=== PATIENT | female | born 1955 | race Caucasian/White ===

== ENCOUNTER 2018-03-26 15:06 | Emergency (ER) | payer MEDICAID ==
[~2018-03-26] VITALS: Ht 157.5 cm; Wt 74.0 kg
[2018-03-26] VITALS (7 sets, daily range): BP systolic 95–138; BP diastolic 50–84
[~2018-03-26 15:06] MED LIST: BUPR150T8 PO; CIPR-173 PO; DOCU-28 PO; EST1T PO; HYDR200T84 PO; NAS0.025NS NS; OSC500T PO; OXYC10TA47 PO; PROP10DR4 EACHEYE; PROP10DR5 EACHEYE; SYN0.088T PO; TOP100T PO
[2018-03-26] MEDS ORDERED: nitroGLYCERIN 0.4mg/hour patch TD ONE (15:40)
[2018-03-26] MEDS ORDERED: glucagon, human recombinant 1mg kit IV ONE (15:40)
[2018-03-26] MEDS ORDERED: nitroGLYCERIN 0.4mg SUBLingual tab SL PRN (15:55)
[2018-03-26] MEDS ORDERED: fentaNYL/PF 50MCG/1 ML 2ML syringe ONE (16:05)
[2018-03-26] MEDS ORDERED: MIDAZolam 5mg/5ml vial ONE (16:05)
[2018-03-26] MEDS ORDERED: LIDOcaine Viscous 15ml cup ONE (16:05)
== END 2018-03-26 17:48 | disposition home or self-care (01) ==
LOC: ER 15:07
DX: T17.228A Food in pharynx causing other injury, initial encounter (principal); K22.2 Esophageal obstruction; K21.9 Gastro-esophageal reflux disease without esophagitis; Z90.49 Acquired absence of other specified parts of digestive tract; Z98.890 Other specified postprocedural states; Z88.2 Allergy status to sulfonamides; Z88.5 Allergy status to narcotic agent; Z91.012 Allergy to eggs; Z88.8 Allergy status to other drugs, medicaments and biological substances; Z79.2 Long term (current) use of antibiotics; Z79.899 Other long term (current) drug therapy; Y92.89 Other specified places as the place of occurrence of the external cause
CPT/HCPCS: 43247; 43450; 96374; 99152; 99285; J1610; J2250; J3010; 99284; A4620

== ENCOUNTER 2019-05-11 13:54 | Emergency (ER) | payer MEDICAID ==
[~2019-05-11] VITALS: Ht 157.5 cm; Wt 72.7 kg
--- NOTE | 2019-05-11 14:31 | NUR ---
ekg and chest xray done
[2019-05-11 14:43] LABS: BASOPHILS # (AUTO) 0.1 X10'3 (0-0.2); BASOPHILS % (AUTO) 1.2 % (0-1); EOSINOPHILS # (AUTO) 0.2 X10'3 (0-0.9); EOSINOPHILS % (AUTO) 2.2 % (0-6); HEMATOCRIT 38.5 % (35.0-45.0); HEMOGLOBIN 13.3 g/dl (12.0-16.0); LYMPHOCYTES # (AUTO) 2.7 X10'3 (1.1-4.8); LYMPHOCYTES % (AUTO) 35.9 % (21-51); MEAN CORPUSCULAR HEMOGLOBIN 33.5 PG (27.0-31.0); MEAN CORPUSCULAR HGB CONC 34.5 g/dL (33.0-36.5); MEAN CORPUSCULAR VOLUME 97.1 FL (78-98); MEAN PLATELET VOLUME 8.9 FL (7.4-10.4); MONOCYTES # (AUTO) 0.8 X10'3 (0-0.9); MONOCYTES % (AUTO) 10.7 % (2-12); NEUTROPHILS # (AUTO) 3.8 X10'3 (1.8-7.7); PLATELET COUNT 276 X10'3 (140-440); RED BLOOD COUNT 3.96 X10'6 (4.20-5.60); RED CELL DISTRIBUTION WIDTH 12.7 % (11.5-14.5); WHITE BLOOD COUNT 7.6 X10'3 (4.5-11.0)
[2019-05-11 14:59] LABS: ALANINE AMINOTRANSFERASE 24 U/L (12-78); ALBUMIN/GLOBULIN RATIO 1.1 (1.1-1.5); ALKALINE PHOSPHATASE 49 IU/L (46-116); ANION GAP 5 (8-16); ASPARTATE AMINO TRANSFERASE 24 U/L (10-37); BILIRUBIN,TOTAL 0.3 MG/DL (0.1-1.0); BLOOD UREA NITROGEN 24 MG/DL (7-18); BUN/CREATININE RATIO 23.3 (6.6-38.0); CHLORIDE 108 MMOL/L (99-107); CREATININE 1.03 MG/DL (0.40-0.90); GLUCOSE 88 MG/DL (70-104); POTASSIUM 3.2 MMOL/L (3.5-5.1); SODIUM 142 MMOL/L (135-145); TOTAL CARBON DIOXIDE 29.5 MMOL/L (24-32); TOTAL PROTEIN 7.5 G/DL (6.4-8.2); eGFR 54 ML/MIN
[2019-05-11 15:35] LABS: LARGE PLATELETS FEW; PLATELET ESTIMATE NORMAL
[2019-05-11 16:16] VITALS: BP 129/85
[2019-05-11 16:21] LABS: D-DIMER 0.42 MG/L FEU (0-0.50)
[2019-05-11] MEDS ORDERED: potassium Cl 20 mEq SR tablet PO ONE (16:25)
[2019-05-11] MEDS ORDERED: CYCL-1 PO (16:37)
== END 2019-05-11 16:58 | disposition home or self-care (01) ==
LOC: ER 13:55
DX: R07.89 Other chest pain (principal); M54.6 Pain in thoracic spine; R22.43 Localized swelling, mass and lump, lower limb, bilateral; K21.9 Gastro-esophageal reflux disease without esophagitis; F41.9 Anxiety disorder, unspecified; Z90.49 Acquired absence of other specified parts of digestive tract; Z98.890 Other specified postprocedural states; Z91.012 Allergy to eggs; Z88.2 Allergy status to sulfonamides; Z88.5 Allergy status to narcotic agent; Z88.6 Allergy status to analgesic agent; Z88.8 Allergy status to other drugs, medicaments and biological substances; Z79.899 Other long term (current) drug therapy
CPT/HCPCS: 36415; 71045; 80053; 84484; 85025; 85379; 93005; 99284

== ENCOUNTER 2019-11-08 14:53 | Emergency (ER) | payer MEDICARE, MEDICAID ==
[~2019-11-08] VITALS: Ht 157.5 cm; Wt 72.7 kg
[~2019-11-08 14:53] MED LIST changes: +CYCL-1 PO
[2019-11-08 15:35] LABS: BASOPHILS # (AUTO) 0.2 X10'3 (0-0.2); BASOPHILS % (AUTO) 3.5 % (0-1); EOSINOPHILS # (AUTO) 0.2 X10'3 (0-0.9); EOSINOPHILS % (AUTO) 2.9 % (0-6); HEMATOCRIT 39.4 % (35.0-45.0); HEMOGLOBIN 13.6 g/dl (12.0-16.0); LYMPHOCYTES # (AUTO) 3.3 X10'3 (1.1-4.8); LYMPHOCYTES % (AUTO) 46.6 % (21-51); MEAN CORPUSCULAR HEMOGLOBIN 33.8 PG (27.0-31.0); MEAN CORPUSCULAR HGB CONC 34.6 g/dL (33.0-36.5); MEAN CORPUSCULAR VOLUME 97.7 FL (78-98); MEAN PLATELET VOLUME 9.3 FL (7.4-10.4); MONOCYTES # (AUTO) 0.9 X10'3 (0-0.9); MONOCYTES % (AUTO) 13.2 % (2-12); NEUTROPHILS # (AUTO) 2.4 X10'3 (1.8-7.7); NEUTROPHILS % (AUTO) 33.8 % (42-75); PLATELET COUNT 323 X10'3 (140-440); RED BLOOD COUNT 4.03 X10'6 (4.20-5.60); RED CELL DISTRIBUTION WIDTH 12.5 % (11.5-14.5); WHITE BLOOD COUNT 7.1 X10'3 (4.5-11.0)
[2019-11-08 15:48] LABS: PARTIAL THROMBOPLASTIN TIME 35 SECONDS (22-32)
[2019-11-08 15:49] LABS: ALANINE AMINOTRANSFERASE 21 U/L (12-78); ALBUMIN/GLOBULIN RATIO 1.1 (1.1-1.5); ALKALINE PHOSPHATASE 44 IU/L (46-116); ANION GAP 5 (8-16); ASPARTATE AMINO TRANSFERASE 22 U/L (10-37); BILIRUBIN,TOTAL 0.3 MG/DL (0.1-1.0); BLOOD UREA NITROGEN 20 MG/DL (7-18); CALCIUM 9.1 MG/DL (8.5-10.1); CHLORIDE 106 MMOL/L (99-107); CREATININE 1.11 MG/DL (0.40-0.90); GLUCOSE 105 MG/DL (70-104); POTASSIUM 3.4 MMOL/L (3.5-5.1); SODIUM 142 MMOL/L (135-145); TOTAL CARBON DIOXIDE 31.4 MMOL/L (24-32); TOTAL PROTEIN 7.8 G/DL (6.4-8.2); eGFR 49 ML/MIN
[2019-11-08] MEDS ORDERED: famotidine/PF 10 mg/ml inj IV ONE (15:50)
[2019-11-08] MEDS ORDERED: pantoprazole 40 MG vial IV ONE (15:50)
[2019-11-08] MEDS ORDERED: ondansetron/PF 4mg/2ml inj IV ONE (16:05)
[2019-11-08] MEDS ORDERED: LIDOcaine Viscous 15ml cup MM ONE (16:05)
[2019-11-08] MEDS ORDERED: mag hydrox/Alum hydrox/simeth 30ml oral suspension PO ONE (16:05)
--- NOTE | 2019-11-08 16:27 | NUR ---
pt amb with steady gait to restroom, no assistance needed
[2019-11-08 16:38] LABS: PLATELET ESTIMATE NORMAL
[2019-11-08 16:39] LABS: SCHISTOCYTES FEW
[2019-11-08] MEDS ORDERED: PANT-47 PO (17:17)
[2019-11-08 17:35] VITALS: BP 127/65
[2019-11-08 17:48] LABS: CLARITY,URINE CLEAR (Clear); COLOR,URINE STRAW (Yellow); GLUCOSE, URINE NEGATIVE (Neg); KETONES,URINE NEGATIVE (Neg); LEUKOCYTE ESTERASE ,URINE NEGATIVE (Neg); NITRITES, URINE NEGATIVE (Neg); OCCULT BLOOD,URINE NEGATIVE (Neg); PH,URINE 6.5 (4.8-8.0); PROTEIN,URINE NEGATIVE (Neg); UROBILINOGEN,URINE 0.2 E.U/dL (0.2-1.0)
[2019-11-08 17:50] LABS: UA COLLECTION TYPE CLN CATCH MIDSTREAM
[2019-11-08 18:42] LABS: OCCULT BLOOD STOOL NEGATIVE (Neg)
== END 2019-11-08 17:38 | disposition home or self-care (01) ==
LOC: ER 14:53
DX: K92.1 Melena (principal); M54.5 Low back pain; R53.1 Weakness; R11.0 Nausea; K21.9 Gastro-esophageal reflux disease without esophagitis; F41.9 Anxiety disorder, unspecified; Z90.49 Acquired absence of other specified parts of digestive tract; Z88.5 Allergy status to narcotic agent; Z88.2 Allergy status to sulfonamides; Z88.8 Allergy status to other drugs, medicaments and biological substances; Z88.6 Allergy status to analgesic agent; Z91.012 Allergy to eggs; Z79.2 Long term (current) use of antibiotics; Z79.899 Other long term (current) drug therapy
CPT/HCPCS: 36415; 71045; 80053; 81003; 82272; 85025; 85610; 85730; 86885; 86900; 86901; 93005; 96374; 96375; 99285; C9113; J2405; J3490

== ENCOUNTER 2020-12-09 12:03 | Emergency (ER) | payer MEDICARE, MEDICAID ==
[~2020-12-09] VITALS: Ht 157.5 cm; Wt 82.0 kg
[~2020-12-09 12:03] MED LIST changes: +PANT-47 PO
[2020-12-09 12:56] VITALS: BP 125/80
== END 2020-12-09 14:17 | disposition home or self-care (01) ==
LOC: ER 12:05
DX: U07.1 COVID-19 (principal); K21.9 Gastro-esophageal reflux disease without esophagitis; Z90.49 Acquired absence of other specified parts of digestive tract; Z88.2 Allergy status to sulfonamides; Z91.018 Allergy to other foods; Z88.5 Allergy status to narcotic agent; Z88.8 Allergy status to other drugs, medicaments and biological substances; Z79.899 Other long term (current) drug therapy
CPT/HCPCS: 87635; 99283; C9803

== ENCOUNTER 2021-03-19 13:07 | Emergency (ER) | payer MEDICARE, MEDICAID ==
[~2021-03-19] VITALS: Ht 157.5 cm; Wt 82.3 kg
[~2021-03-19 13:07] MED LIST changes: -CIPR-173 PO; +CIPR-447 PO
[2021-03-19 13:39] VITALS: BP 153/85
[2021-03-19] MEDS ORDERED: ORPH100T2 PO (14:00)
[2021-03-19] MEDS ORDERED: TRAM50TA2 PO (14:00)
[2021-03-19] MEDS ORDERED: ketorolac trometh inj. 60 MG/2 ML VIAL IM ONE (14:00)
[2021-03-19] MEDS ORDERED: orphenadrine citrate 60mg/2ml inj. IM ONE (14:00)
== END 2021-03-19 14:15 | disposition home or self-care (01) ==
LOC: ER 13:07
DX: S39.012A Strain of muscle, fascia and tendon of lower back, initial encounter (principal); M62.830 Muscle spasm of back; K21.9 Gastro-esophageal reflux disease without esophagitis; F41.9 Anxiety disorder, unspecified; Z90.49 Acquired absence of other specified parts of digestive tract; Z98.890 Other specified postprocedural states; Z91.012 Allergy to eggs; Z88.2 Allergy status to sulfonamides; Z88.8 Allergy status to other drugs, medicaments and biological substances; Z88.5 Allergy status to narcotic agent; Z79.2 Long term (current) use of antibiotics; Z79.899 Other long term (current) drug therapy; X58.XXXA Exposure to other specified factors, initial encounter; Y93.89 Activity, other specified; Y92.89 Other specified places as the place of occurrence of the external cause; Y99.8 Other external cause status
CPT/HCPCS: 96372; 99284; J1885; J2360

== ENCOUNTER 2021-06-25 15:36 | Emergency (ER) | payer MEDICARE, MEDICAID ==
[~2021-06-25] VITALS: Ht 157.5 cm; Wt 83.0 kg
[~2021-06-25 15:36] MED LIST changes: +ORPH100T2 PO
[2021-06-25] MEDS ORDERED: IBUP-1986 PO (17:19)
[2021-06-25] MEDS ORDERED: CYCL-1 PO (17:19)
[2021-06-25] MEDS ORDERED: PER5325T PO (17:19)
[2021-06-25] MEDS ORDERED: oxyCODONE IR 5mg (immed. release) tablet PO ONE (17:20)
[2021-06-25 17:27] VITALS: BP 160/86
== END 2021-06-25 17:29 | disposition home or self-care (01) ==
LOC: ER 15:37
DX: S63.502A Unspecified sprain of left wrist, initial encounter (principal); S20.212A Contusion of left front wall of thorax, initial encounter; R07.89 Other chest pain; M25.532 Pain in left wrist; K21.9 Gastro-esophageal reflux disease without esophagitis; F41.9 Anxiety disorder, unspecified; Z90.49 Acquired absence of other specified parts of digestive tract; Z88.2 Allergy status to sulfonamides; Z88.5 Allergy status to narcotic agent; Z88.8 Allergy status to other drugs, medicaments and biological substances; Z91.012 Allergy to eggs; Z79.2 Long term (current) use of antibiotics; Z79.899 Other long term (current) drug therapy; W01.0XXA Fall on same level from slipping, tripping and stumbling without subsequent striking against object, initial encounter; Y93.89 Activity, other specified; Y92.89 Other specified places as the place of occurrence of the external cause; Y99.8 Other external cause status
CPT/HCPCS: 71045; 73110; 99284

== ENCOUNTER 2022-04-10 14:57 | Emergency (ER) | payer MEDICARE, MEDICAID ==
[~2022-04-10] VITALS: Ht 157.5 cm; Wt 87.0 kg
[~2022-04-10 14:57] MED LIST changes: +IBUP-1986 PO
[2022-04-10 16:06] LABS: RED CELL DISTRIBUTION WIDTH 13.9 % (11.5-14.5)
[2022-04-10 16:09] LABS: ALANINE AMINOTRANSFERASE 20 U/L (12-78); ALBUMIN 4.3 G/DL (3.4-5.0); ALBUMIN/GLOBULIN RATIO 0.9 (1.1-1.5); ALKALINE PHOSPHATASE 108 IU/L (46-116); ANION GAP 9 (8-16); ASPARTATE AMINO TRANSFERASE 30 U/L (10-37); BASOPHILS # (AUTO) 0.1 X10'3 (0-0.2); BASOPHILS % (AUTO) 0.8 % (0-1); BILIRUBIN,TOTAL 0.3 MG/DL (0.1-1.0); BLOOD UREA NITROGEN 19 MG/DL (7-18); BUN/CREATININE RATIO 17.8 (6.6-38.0); CALCIUM 9.9 MG/DL (8.5-10.1); CHLORIDE 98 MMOL/L (99-107); CREATININE 1.07 MG/DL (0.40-0.90); EOSINOPHILS # (AUTO) 0.3 X10'3 (0-0.9); EOSINOPHILS % (AUTO) 2.2 % (0-6); GLUCOSE 103 MG/DL (70-104); HEMATOCRIT 41.2 % (35.0-45.0); HEMOGLOBIN 13.8 g/dl (12.0-16.0); LYMPHOCYTES # (AUTO) 3.2 X10'3 (1.1-4.8); LYMPHOCYTES % (AUTO) 21.2 % (21-51); MEAN CORPUSCULAR HEMOGLOBIN 31.1 PG (27.0-31.0); MEAN CORPUSCULAR HGB CONC 33.5 g/dL (33.0-36.5); MEAN CORPUSCULAR VOLUME 92.8 FL (78-98); MEAN PLATELET VOLUME 9.5 FL (7.4-10.4); MONOCYTES # (AUTO) 1.3 X10'3 (0-0.9); MONOCYTES % (AUTO) 8.6 % (2-12); NEUTROPHILS # (AUTO) 10.3 X10'3 (1.8-7.7); NEUTROPHILS % (AUTO) 67.2 % (42-75); PLATELET COUNT 413 X10'3 (140-440); POTASSIUM 3.4 MMOL/L (3.5-5.1); RED BLOOD COUNT 4.45 X10'6 (4.20-5.60); SODIUM 135 MMOL/L (135-145); TOTAL CARBON DIOXIDE 27.8 MMOL/L (24-32); TOTAL PROTEIN 8.9 G/DL (6.4-8.2); WHITE BLOOD COUNT 15.3 X10'3 (4.5-11.0); eGFR 51 ML/MIN
[2022-04-10 19:38] VITALS: BP 154/93
== END 2022-04-10 19:59 | disposition home or self-care (01) ==
LOC: ER 14:57
DX: J10.1 Influenza due to other identified influenza virus with other respiratory manifestations (principal); Z20.822 Contact with and (suspected) exposure to COVID-19; R06.02 Shortness of breath; R05.9 Cough, unspecified; R09.89 Other specified symptoms and signs involving the circulatory and respiratory systems; K21.9 Gastro-esophageal reflux disease without esophagitis; F41.9 Anxiety disorder, unspecified; Z90.49 Acquired absence of other specified parts of digestive tract; Z98.890 Other specified postprocedural states; Z91.012 Allergy to eggs; Z88.2 Allergy status to sulfonamides; Z88.5 Allergy status to narcotic agent; Z88.8 Allergy status to other drugs, medicaments and biological substances; Z79.2 Long term (current) use of antibiotics; Z79.899 Other long term (current) drug therapy
CPT/HCPCS: 71045; 80053; 83605; 83880; 85025; 87040; 87502; 87503; 87635; 93005; 99285; C9803

== ENCOUNTER 2023-10-08 12:09 | Emergency (ER) | payer MEDICARE, MEDICAID ==
[~2023-10-08] VITALS: Ht 157.5 cm; Wt 93.8 kg
[~2023-10-08 12:09] MED LIST changes: +HYDR200T73 PO; -HYDR200T84 PO; -ORPH100T2 PO; +ORPH100T4 PO
[2023-10-08 12:18] VITALS: TEMP 98.2
[2023-10-08 13:04] LABS: BILIRUBIN,URINE NEGATIVE (Neg); CLARITY,URINE CLEAR (Clear); COLOR,URINE STRAW (Yellow); GLUCOSE, URINE NEGATIVE (Neg); KETONES,URINE NEGATIVE (Neg); LEUKOCYTE ESTERASE ,URINE NEGATIVE (Neg); NITRITES, URINE NEGATIVE (Neg); OCCULT BLOOD,URINE NEGATIVE (Neg); PH,URINE 6.5 (4.8-8.0); PROTEIN,URINE NEGATIVE (Neg); UROBILINOGEN,URINE 0.2 E.U/dL (0.2-1.0)
[2023-10-08 13:04] LABS: BASOPHILS % (AUTO) 0.1 % (0-1); EOSINOPHILS # (AUTO) 0.2 X10'3 (0-0.9); HEMATOCRIT 40.1 % (35.0-45.0); HEMOGLOBIN 13.5 g/dl (12.0-16.0); LYMPHOCYTES # (AUTO) 3.2 X10'3 (1.1-4.8); MEAN CORPUSCULAR HEMOGLOBIN 32.5 PG (27.0-31.0); MEAN CORPUSCULAR HGB CONC 33.6 g/dL (33.0-36.5); MEAN CORPUSCULAR VOLUME 96.6 FL (78-98); MEAN PLATELET VOLUME 8.7 FL (7.4-10.4); MONOCYTES # (AUTO) 0.9 X10'3 (0-0.9); MONOCYTES % (AUTO) 13.2 % (2-12); NEUTROPHILS # (AUTO) 2.7 X10'3 (1.8-7.7); NEUTROPHILS % (AUTO) 37.7 % (42-75); PLATELET COUNT 368 X10'3 (140-440); RED BLOOD COUNT 4.15 X10'6 (4.20-5.60); RED CELL DISTRIBUTION WIDTH 13.8 % (11.5-14.5); WHITE BLOOD COUNT 7.1 X10'3 (4.5-11.0)
[2023-10-08 13:08] LABS: UA COLLECTION TYPE CLN CATCH MIDSTREAM
[2023-10-08 13:15] LABS: ALANINE AMINOTRANSFERASE 23 U/L (12-78); ALBUMIN/GLOBULIN RATIO 0.9 (1.1-1.5); ALKALINE PHOSPHATASE 71 IU/L (46-116); ANION GAP 7 (8-16); ASPARTATE AMINO TRANSFERASE 23 U/L (10-37); BILIRUBIN,TOTAL 0.3 MG/DL (0.1-1.0); BLOOD UREA NITROGEN 24 MG/DL (7-18); BUN/CREATININE RATIO 25.8 (10.0-20.0); CALCIUM 9.4 MG/DL (8.5-10.1); CHLORIDE 99 MMOL/L (99-107); CREATININE 0.93 MG/DL (0.40-0.90); GLUCOSE 98 MG/DL (70-104); LIPASE 41 U/L (16-77); POTASSIUM 3.5 MMOL/L (3.5-5.1); SODIUM 136 MMOL/L (135-145); TOTAL CARBON DIOXIDE 29.8 MMOL/L (24-32); TOTAL PROTEIN 8.3 G/DL (6.4-8.2); eCRCL 45 ML/MIN; eGFR 60 ML/MIN
[2023-10-08 14:04] VITALS: BP 136/87; PULSE 86; RESP 16; O2SAT 98
== END 2023-10-08 16:20 | disposition home or self-care (01) ==
LOC: ER 12:10
DX: N81.10 Cystocele, unspecified (principal); K21.9 Gastro-esophageal reflux disease without esophagitis; F41.9 Anxiety disorder, unspecified; Z90.49 Acquired absence of other specified parts of digestive tract; Z72.89 Other problems related to lifestyle; Z88.2 Allergy status to sulfonamides; Z88.8 Allergy status to other drugs, medicaments and biological substances; Z91.012 Allergy to eggs; Z79.899 Other long term (current) drug therapy
CPT/HCPCS: 36415; 80053; 81003; 83690; 85025; 99283

== ENCOUNTER 2023-10-28 20:32 | Emergency (ER) | payer MEDICARE, MEDICAID ==
[~2023-10-28] VITALS: Ht 157.5 cm; Wt 92.3 kg
[2023-10-28 20:44] VITALS: BP 163/89; PULSE 97; O2SAT 97
[2023-10-28] MEDS ORDERED: DOXY-1 PO (21:48)
[2023-10-28] MEDS ORDERED: NAPR-56 PO (21:48)
[2023-10-28] MEDS: ketorolac tromethamine 15mg/ml inj. IM ONE (21:51)
[2023-10-28 22:12] VITALS: RESP 17; TEMP 97.8
== END 2023-10-28 22:00 | disposition home or self-care (01) ==
LOC: ER 20:33
DX: K04.7 Periapical abscess without sinus (principal); J44.9 Chronic obstructive pulmonary disease, unspecified; K21.9 Gastro-esophageal reflux disease without esophagitis; F41.9 Anxiety disorder, unspecified; Z98.890 Other specified postprocedural states; Z90.49 Acquired absence of other specified parts of digestive tract; Z88.2 Allergy status to sulfonamides; Z88.8 Allergy status to other drugs, medicaments and biological substances; Z91.012 Allergy to eggs; Z79.2 Long term (current) use of antibiotics; Z79.1 Long term (current) use of non-steroidal anti-inflammatories (NSAID); Z79.899 Other long term (current) drug therapy
CPT/HCPCS: 96372; 99283; J1885

== ENCOUNTER 2023-10-30 19:42 | Emergency (ER) | payer MEDICARE, OTHER ==
[~2023-10-30] VITALS: Ht 157.5 cm; Wt 92.3 kg
[~2023-10-30 19:42] MED LIST changes: +DOXY-1 PO; +NAPR-56 PO
[2023-10-30 19:45] VITALS: BP 157/81; PULSE 93; O2SAT 95
[2023-10-30] MEDS ORDERED: CLIN300C54 PO (20:27)
[2023-10-30] MEDS: ketorolac tromethamine 15mg/ml inj. IM ONE (20:34)
[2023-10-30 20:41] VITALS: RESP 18
[2023-10-30] MEDS: oxyCODONE/APAP 5-325mg tablet PO ONE (20:41)
[2023-10-30 20:44] VITALS: TEMP 97.9
== END 2023-10-30 20:46 | disposition home or self-care (01) ==
LOC: ER 19:43
DX: K04.7 Periapical abscess without sinus (principal); K21.9 Gastro-esophageal reflux disease without esophagitis; F41.9 Anxiety disorder, unspecified; J44.9 Chronic obstructive pulmonary disease, unspecified; Z90.49 Acquired absence of other specified parts of digestive tract; Z88.2 Allergy status to sulfonamides; Z88.8 Allergy status to other drugs, medicaments and biological substances; Z91.012 Allergy to eggs; Z79.899 Other long term (current) drug therapy; Z79.2 Long term (current) use of antibiotics; Z79.1 Long term (current) use of non-steroidal anti-inflammatories (NSAID)
CPT/HCPCS: 96372; 99283; J1885